=== PATIENT | male | born 1985 | race Caucasian/White ===

== ENCOUNTER 2021-11-18 10:12 | Emergency (ER) | payer BC, SELFPAY ==
[2021-11-18 10:33] VITALS: BP 136/104; PULSE 83; RESP 16; TEMP 37.1; O2SAT 97; BMI 31.0
--- NOTE | 2021-11-18 10:48 | HMH.EDUTC ---
[facility] [place] Clinical Impression: Viral syndrome Sinusitis Qualifiers: Sinusitis location: unspecified location Chronicity: acute Recurrence: non-recurrent Qualified Code(s): J01.90 - Acute sinusitis, unspecified Pharyngitis Qualifiers: Pharyngitis/tonsillitis etiology: unspecified etiology Qualified Code(s): J02.9 - Acute pharyngitis, unspecified Disposition: Home, Self-Care Condition on Discharge: Good Instructions: DI for Pharyngitis/Tonsillopharyngitis -- Adult, DI for Sinusitis, DI for COVID-19 (Suspected or Confirmed ), Preventing the Spread of Coronavirus Discharge Instructions Additional Instructions: Drink plenty of fluids. Take tylenol or ibuprofen for pain or fever. Take the medications as directed. Follow up with your regular doctor. GO TO THE ER FOR ANY WORSENING SYMPTOMS Quarantine until you know the results of your covid-19 test. Notify your school or workplace of your results and follow their instructions regarding return to work/school. Prescriptions: Benzonatate [Benzonatate 100mg cap] 100 mg PO TIDP PRN #30 cap PRN Reason: Cough [facility]: [facility] methylPREDNISolone [Medrol] 4 mg PO DIRECTED 6 Days #21 packet Transmission Status: Received by [facility] guaiFENesin [Mucinex 600mg tablet] 1 - 2 tab PO BIDP PRN #30 tab PRN Reason: Congestion Transmission Status: [facility] Azithromycin [Z-Vishnu 250mg Tab*] 250 mg PO UD DOSE PK #6 tab Transmission Status: [facility] Referrals: Provider,Referral, [Primary Care Provider] - Time of Disposition: 11:23 Medical Decision Making - Medical Records Medical records reviewed: No: I reviewed the patient's medical records. - Hubert Inquiry Pt receiving controlled substance: No Vital Signs: 11/18/21 10:33 11/18/21 11:25 Temperature 98.8 F 98.8 F Temperature Source Oral Pulse Rate 83 Pulse Rate [Left] 83 Respiratory Rate 16 16 Blood Pressure 136/104 H Blood Pressure [Right Arm] 136/104 H Blood Pressure Mean [Right Arm] 114 02 Sat by Pulse Oximetry 97 - Lab Data Lab results reviewed: Yes: I reviewed the patient's lab results. Lab Results 11/18/21 11:04: Influenza Type A Ag Negative, Influenza Type B Ag Negative [facility] [place] - General Stated complaint: sinus pressure Time Seen by Provider: 11/18/21 10:48 - History of Present Illness Provider Complaint: He states that for the past 2 days he has been feeling bad, having a scratchy sore throat, a dry cough and sinus drainage. He has felt like he has a fever, but he has not documented one. He has not been vaccinated for covid or influenza. - Related Data Previous Rx's Medication Instructions Recorded Azithromycin [Z-Vishnu 250mg Tab*] 250 mg PO UD DOSE PK #6 tab 11/18/21 Benzonatate [Benzonatate 100mg 100 mg PO TIDP PRN #30 cap 11/18/21 cap] guaiFENesin [Mucinex 600mg tablet] 1 - 2 tab PO BIDP PRN #30 tab 11/18/21 methylPREDNISolone [Medrol] 4 mg PO DIRECTED 6 Days #21 11/18/21 packet Allergies Allergy/AdvReac Type Severity Reaction Status Date / Time No Known Allergies Allergy Verified 11/18/21 11:09 [facility] History - Hepatitis A Screen Attestation statement:: This patient has been screened for Hepatitis A risk factors. I have reviewed the patient's past medical history: Yes ROS Obtained: Yes All systems reviewed & no additional complaints - Constitutional Constitutional: Reports as per HPI - Eyes Eyes: Denies eye discharge - ENT Ears, Nose, Mouth, and Throat: Reports as per HPI - Cardiovascular Cardiovascular: Denies chest pain - Respiratory Respiratory: Reports chest congestion, Reports cough, Denies dyspnea, Denies stridor, Denies wheezing Physical Exam - General General appearance: alert, in no apparent distress - Head Head exam: atraumatic, normocephalic, normal inspection - Eye Eye exam: Pres
[2021-11-18 11:20] LABS: UTC Influenza A Antigen Negative (Negative); UTC Influenza B Antigen Negative (Negative)
[2021-11-18 11:25] VITALS: BP 136/104; PULSE 83; RESP 16; TEMP 37.1
== END 2021-11-18 11:40 | disposition home or self-care (01) ==
PROVIDERS: Emergency Provider Nurse Practitioner Family
DX: U07.1 COVID-19 (principal); J01.90 Acute sinusitis, unspecified; J02.9 Acute pharyngitis, unspecified
CPT/HCPCS: 87804; 99202; C9803; G0463; U0003; U0005

== ENCOUNTER → 2021-12-13 12:03 | Outpatient (CLI) | payer BC, SELFPAY ==
[2021-12-13 13:29] LABS: Basophils % 0.3 % (0.1-2.0); Eosinophils # 0.1 K/mm3 (0.0-0.4); Eosinophils % 0.7 % (0.1-12.0); Hematocrit 47.5 % (42.0-52.0); Hemoglobin 15.5 g/dL (14.1-18.0); Lymphocytes # 2.8 K/mm3 (0.7-4.5); Lymphocytes % 27.5 % (10-50); Mean Corpuscular HGB Conc 32.7 g/dL (31.8-35.4); Mean Corpuscular Hemoglobin 30.6 pg (27.0-31.2); Mean Corpuscular Volume 93.6 fl (80-94); Mean Platelet Volume 8.9 fl (7.4-10.4); Monocytes # 0.6 K/mm3 (0.1-1.0); Monocytes % 6.3 % (1.7-9.3); Neutrophils # 6.6 K/mm3 (1.8-7.8); Neutrophils % 65.3 % (37.0-80.0); Platelet Count 258 K/mm3 (142-424); Red Blood Count 5.08 M/mm3 (4.60-6.20); Red Cell Distribution Width 13.2 % (11.5-17.5); White Blood Count 10.2 K/mm3 (4.8-10.8)
[2021-12-13 13:57] LABS: Chloride 105 mmol/L (98-107); Sodium 136 mmol/L (136-145)
[2021-12-13 14:00] LABS: Alanine Aminotransferase 52 U/L (12-78); Albumin Level 4.9 g/dl (3.5-5.0); Alkaline Phosphatase 70 U/L (38-126); Aspartate Amino Transferase 51 U/L (17-59); Bilirubin,Total 0.5 mg/dl (0.2-1.3); Blood Urea Nitrogen 31 mg/dl (9-20); Carbon Dioxide 23 mmol/L (22.0-30.0); Cholesterol 177 mg/dl (140-200); Estimated Glomerular Filt Rate 84 ml/min (>60); GFR (African American) 101 ML/MIN (>60); Globulin 2.5 g/dL (1.3-3.2); Total Protein,Serum 7.4 g/dl (6.3-8.2); Triglycerides 124 mg/dl (30-150); VLDL Cholesterol 25 mg/dL (0-40)
[2021-12-13 14:01] LABS: Calcium 9.1 mg/dl (8.4-10.2); Chol/HDL Ratio 3.8 (1-3.5); Glucose 73 mg/dl (74-100); HDL Cholesterol 47 mg/dl (40-60)
[2021-12-13 14:12] LABS: Direct LDL Cholesterol 101.49 mg/dL (100-129)
== END ==
PROVIDERS: Visit Provider Internal Medicine
DX: R59.1 Generalized enlarged lymph nodes (principal); E78.5 Hyperlipidemia, unspecified; R63.1 Polydipsia; Z83.3 Family history of diabetes mellitus
CPT/HCPCS: 80053; 80061; 85025

== ENCOUNTER → 2022-02-08 16:25 | Outpatient (CLI) | payer BC, SELFPAY | PROVIDERS: Visit Provider Surgery | DX: Z01.812 Encounter for preprocedural laboratory examination (principal); Z11.52 Encounter for screening for COVID-19; D17.1 Benign lipomatous neoplasm of skin and subcutaneous tissue of trunk | CPT/HCPCS: C9803; U0003; U0005 ==

== ENCOUNTER 2022-02-09 06:10 | Day surgery (SDC) | payer BC, SELFPAY ==
[2022-02-09] VITALS (12 sets, daily range): BP systolic 118–177; BP diastolic 51–105; PULSE 58–71; RESP 15–18; TEMP 36.7–43; O2SAT 92–97; BMI 31.7
--- NOTE | 2022-02-09 07:13 | SUR.PREOP ---
0713-assisted patient to BR and back to stretcher applied capo paws. Stated he was comfortable
--- NOTE | 2022-02-09 07:31 | HMH.ANESCL ---
[facility] Anesthesia Checklist - Patient Identification Patient Identification: Arm Band - Structural Data Admitted From: Home Planned Operative Procedure/s: Excision Right Abdominal Wall Lipomas Consent for Planned Operative Procedure(s) Verified: Yes Verified Documents: Surgical Consent, History and Physical - NPO Status Verified Time NPO: 00:00 - Additional verifications Anesthesia Reactions: No Hx Blood Transfusions: No Blood Transfusion Reaction: No - Airway Assessment C-Spine Mobility Assessed: Yes (mp1) TMJ Mobility Assessed: Yes Dentition: Good Dentition - Anesthesia Plan Anesthesia Risk discussed: Yes Anesthesia Plan: Verified ASA Class: I Anesthesia Type: General [facility] History I have reviewed the patient's past medical history: Yes Medical History: Denies:: Cancer, Diabetes Mellitus Type 1, Diabetes Mellitus Type 2, Internal Pacemaker, MRSA, Seizures *Have you ever received a pneumonia vaccine?: No *Have you received a flu vaccine this season?: No Other Medical History: Denies: Blood Transfusion Reaction Anesthesia experience/problems:: nac Other Surgeries: No: Pacemaker Amputation: No Fractures: No - *Social History Last grade of school completed: High school graduate Smoking Status: Never smoker Alcohol Intake: never Substance Use Type: denies use *Occupational Status:: employed Housing: house Household Members: spouse, children *Travel in the last 8 weeks: None Family Hx:: No significant family history
--- NOTE | 2022-02-09 07:50 | HMH.OPNOTE ---
Date of procedure: 02/09/22 Pre-op Diagnosis:: Right chest/abdominal wall lipomas (x3) Post-op Diagnosis:: Same Procedure performed:: Excision of 3 lipomatous lesions (between 1.5 and 2 cm) from right chest and abdominal wall Surgeon:: Giorgio Reina MD [employer]CH[employer]IC:: Thom Gardner Anesthesia: local, LMA Estimated blood loss (mL): 5 Operative findings:: Lipomatous lesions all within the subcutaneous tissue (not subfascial/intramuscular) Operative note:: After informed consent was obtained the patient was taken to the operating room and placed in the supine position. General anesthesia with laryngeal mask airway was achieved. His right chest and abdominal wall were prepped and draped in a sterile fashion. After infiltration with local anesthetic an incision was made overlying all 3 lesions. The 1.5 cm right medial chest wall lesion was carefully elevated and excised in toto utilizing a combination of blunt dissection, sharp dissection, and electrocautery. Electrocautery was utilized to achieve hemostasis. The 2 cm right lateral chest wall lesion and a 2 cm right abdominal wall lesion were excised in the same manner. All 3 incisions for reapproximated with 4-0 Monocryl. Dressings were applied and the patient was transferred to recovery in stable condition after removal of his laryngeal mask airway. Note: All 3 lesions were within the subcutaneous tissue and not found to be subfascial/intramuscular. Condition: stable Disposition: PACU Specimens:: Right medial chest wall lipoma -1.5 cm Right lateral chest wall lipoma -2 cm Right abdominal wall lipoma -2 cm Complications:: No immediate
--- NOTE | 2022-02-09 07:59 | HMH.ANESI ---
[facility] [place] Anesthesia Record Part I Intake, IV Amount: 800 Estimated blood loss (mL): 5 Urine output (mL): 0 Blood Pressure: 136/71 SaO2: 92 Pulse Rate: 62 Respiratory Rate: 16 Temperature: 99.3 F Patient is:: Drowsy, Stable Stable to PACU at:: 07:55
--- NOTE | 2022-02-09 09:19 | P.PN_ITS ---
[facility] Anesthesia Record Part II Discharge Time: 08:25 Destination: Surgical Day Care (OP Surgery) PACU nurse assessment reviewed?: Yes Patient Condition:: Good Anesthesia Complications:: None Swallowing reflex intact?: Yes Cyanosis?: No Blood Pressure: 129/73 Pulse Rate: 60 Temperature: 98.2 F Mental Status: Alert & Oriented Pain level:: 0 Nausea and/or vomitting:: None Intake, IV Amount: 0
== END 2022-02-09 09:10 | disposition home or self-care (01) ==
LOC: OR 06:13
PROVIDERS: PCP Internal Medicine; Visit Provider Surgery
PROC: (CPT 11106; principal; 2022-02-09 07:30)
DX: D17.1 Benign lipomatous neoplasm of skin and subcutaneous tissue of trunk (principal)
CPT/HCPCS: 11106; 11107 ×2; 96374; J2405

== ENCOUNTER → 2022-02-13 12:31 | Outpatient (CLI) | payer BC, SELFPAY ==
--- NOTE | 2022-02-13 | CA_ITS ---
FINAL REPORT TECHNIQUE: Ultrasound images of the deep venous system were obtained from the right groin to the calf veins. CLINICAL HISTORY: Heal/ankle, calf pain since saturday. Pt had 3 Lipomas removed from chest wall on 02/09/22 FINDINGS: The deep venous system is normally compressible. Normal flow is identified. IMPRESSION: No evidence of right lower extremity DVT. Reviewed, Interpreted and Dictated by Kg Byrne MD Transcribed by Jordan Laguna Authenticated by Kg Byrne MD on 02/13/2022 02:28:[address] [facility]
--- NOTE | 2022-02-13 14:08 | XR_ITS ---
FINAL REPORT CLINICAL HISTORY: SOB FINDINGS: TWO-VIEW CHEST The heart size is normal. The mediastinum is normal. The lungs are clear. There is no pneumothorax. IMPRESSION: No acute cardiopulmonary process. Reviewed, Interpreted and Dictated by Kg Byrne MD Transcribed by Harriet Gustafson Authenticated by Kg Byrne MD on 02/13/2022 03:16:19 PM [facility]
[2022-02-13 14:55] LABS: Basophils % 0.4 % (0.1-2.0); Eosinophils # 0.2 K/mm3 (0.0-0.4); Eosinophils % 2.3 % (0.1-12.0); Hematocrit 45.1 % (42.0-52.0); Hemoglobin 15.1 g/dL (14.1-18.0); Lymphocytes # 2.5 K/mm3 (0.7-4.5); Lymphocytes % 27.8 % (10-50); Mean Corpuscular HGB Conc 33.5 g/dL (31.8-35.4); Mean Corpuscular Hemoglobin 30.9 pg (27.0-31.2); Mean Corpuscular Volume 92.3 fl (80-94); Mean Platelet Volume 8.5 fl (7.4-10.4); Monocytes # 0.8 K/mm3 (0.1-1.0); Neutrophils # 5.4 K/mm3 (1.8-7.8); Neutrophils % 60.5 % (37.0-80.0); Platelet Count 227 K/mm3 (142-424); Red Blood Count 4.89 M/mm3 (4.60-6.20); Red Cell Distribution Width 12.5 % (11.5-17.5); White Blood Count 8.9 K/mm3 (4.8-10.8)
[2022-02-13 15:07] LABS: D-Dimer 1.39 ug/mL (0.0-0.5)
--- NOTE | 2022-02-13 16:04 | CT_ITS ---
FINAL REPORT TECHNIQUE: Thin section axial CT images were obtained from the lung apices to the upper abdomen. IV contrast was administered. MIP 3-D reformats were obtained. This study was performed with techniques to keep radiation doses as low as reasonably achievable (ALARA). Individualized dose reduction techniques using automated exposure control or adjustment of mA and/or kV according to the patient's size were employed. CLINICAL HISTORY: soa FINDINGS: The heart size is normal. There is no adenopathy. There is a prominent bifurcation of a right lower lobe pulmonary artery branch. There is no filling defect to suggest PE. There is no aortic dissection. There is no pericardial effusion. There is scarring in the right upper lobe. There is no suspicious infiltrate or nodule. No pleural effusion. Limited images of the upper abdomen demonstrate no acute abnormality. IMPRESSION: No pulmonary embolism or aortic dissection. Reviewed, Interpreted and Dictated by Kg Byrne MD Transcribed by Jordan Laguna Authenticated by Kg Byrne MD on 02/13/2022 04:44:47 PM [facility]
== END ==
PROVIDERS: PCP Internal Medicine; Visit Provider Internal Medicine
DX: R06.02 Shortness of breath (principal); M79.604 Pain in right leg; M79.89 Other specified soft tissue disorders
CPT/HCPCS: 36415; 71046; 71275; 85025; 85378; 93971; Q9967

== ENCOUNTER → 2023-06-18 09:58 | Outpatient (CLI) | payer BC, SELFPAY ==
--- NOTE | 2023-06-18 10:05 | XR_ITS ---
FINAL REPORT CLINICAL HISTORY: DECREASED RANGE OF MOTION..injury 1 year ago FINDINGS: Right shoulder Three views were obtained. There is no acute fracture or dislocation. The joint spaces appear normal. No soft tissue abnormality is identified. IMPRESSION: No acute process. Reviewed, Interpreted and Dictated by Kg Byrne MD Transcribed by Harriet Gustafson Authenticated and [facility]
== END ==
PROVIDERS: PCP Internal Medicine; Visit Provider Internal Medicine
DX: M25.511 Pain in right shoulder (principal); M25.611 Stiffness of right shoulder, not elsewhere classified
CPT/HCPCS: 73030